=== PATIENT | female | born 1965 | race Two or more races ===

== ENCOUNTER 2019-06-05 02:56 | Emergency (ER) | payer MEDICAID ==
[~2019-06-05] VITALS: Ht 165.1 cm; Wt 79.8 kg
[2019-06-05] MEDS ORDERED: SODIUM CHLORIDE 0.9% 1,000 ML IVB ONE (03:20)
[2019-06-05 04:12] LABS: Basophils # (auto) 0 uL; Basophils % (auto) 0.4 % (0.0-2.0); Eosinophils # (auto) 0.2 uL; Eosinophils % (auto) 2.8 % (0.0-7.0); Hematocrit 40.4 % (36.0-46.0); Hemoglobin 13.3 g/dL (12.2-16.2); Lymphocytes # (auto) 1.7 uL; Mean Corpuscular Hemoglobin 29.1 pg (28.0-32.0); Mean Corpuscular Volume 88.3 fL (80.0-100.0); Monocytes # (auto) 0.8 uL; Neutrophils # (auto) 3.4 uL; Neutrophils % (auto) 55.8 % (37.0-80.0); Platelet Count (auto) 275 10^3/uL (140-450); Red Blood Cells 4.57 10^6/uL (4.0-5.20); Red Cell Distribution Width 15.5 % (11.8-14.3)
[2019-06-05 04:24] LABS: Urine Bacteria FEW /hpf (None Seen); Urine Blood 2+ /uL (Negative); Urine Specific Gravity 1.017 (1.001-1.035); Urine WBC 3 /hpf (0 - 5)
[2019-06-05 04:25] LABS: Albumin 3.7 g/dL (3.4-5.0); Calcium 8.7 mg/dL (8.5-10.1)
[2019-06-05 04:29] LABS: BUN/Creatinine Ratio 18.2; Bilirubin, Total 0.2 mg/dL (0.2-1.0); Total Protein 8.2 g/dL (6.4-8.2)
[2019-06-05 04:35] LABS: INR < 0.93 (0.9-1.15); Partial Thromboplastin Time 23.1 sec (23.64-32.05)
[2019-06-05 08:30] VITALS: BP 119/67
== END 2019-06-05 09:59 | disposition home or self-care (01) ==
LOC: ER 02:58
DX: N93.8 Other specified abnormal uterine and vaginal bleeding (principal)
CPT/HCPCS: 36415; 76856; 80053; 81001; 81025; 84702; 85025; 85610; 85730; 99284; J7030

== ENCOUNTER 2019-08-16 08:45 | Emergency (ER) | payer MEDICAID ==
[~2019-08-16] VITALS: Ht 152.4 cm; Wt 81.6 kg
[2019-08-16 11:37] VITALS: BP 148/67
[2019-08-16] MEDS ORDERED: KETOROLAC TROMETH 60MG/2ML VIAL IM ONE (13:00)
[2019-08-16] MEDS ORDERED: cefTRIAXone SOD 1,000 MG VL IM ONE (13:00)
== END 2019-08-16 14:22 | disposition home or self-care (01) ==
LOC: ER 08:45
DX: N61.0 Mastitis without abscess (principal)
CPT/HCPCS: 96372; 99283; J0696; J1885

== ENCOUNTER 2020-12-20 10:53 | Inpatient (IN) | payer MEDICAID ==
[~2020-12-20] VITALS: Ht 162.6 cm; Wt 83.6 kg
[2020-12-20 11:21] LABS: Basophils # (auto) 0 10 ^3/uL (0-0.2); Basophils % (auto) 0.7 % (0.0-2.0); Eosinophils # (auto) 0.1 10 ^3/uL (0-0.8); Hematocrit 38.5 % (36.0-46.0); Hemoglobin 13.1 g/dL (12.2-16.2); Lymphocytes # (auto) 1.6 10 ^3/uL (0.4-5.4); Lymphocytes % (auto) 23.8 % (10.0-50.0); Mean Corpuscular Hemoglobin 28.9 pg (28.0-32.0); Mean Corpuscular Hgb Conc. 33.9 g/dL (32.0-36.0); Mean Corpuscular Volume 85.1 fL (80.0-100.0); Monocytes # (auto) 0.5 10 ^3/uL (0-1.3); Monocytes % (auto) 7.5 % (0.0-12.0); Neutrophils # (auto) 4.4 10 ^3/uL (1.6-8.6); Red Blood Cells 4.52 10^6/uL (4.0-5.20); Red Cell Distribution Width 14.2 % (11.8-14.3); White Blood Cell 6.5 10^3/uL (4.4-10.8)
[2020-12-20] MEDS ORDERED: PANTOPRAZOLE 40 MG/10 ML VIAL INJ IV ONE (11:45)
[2020-12-20] MEDS ORDERED: SODIUM CHLORIDE 0.9% 1,000 ML IVB ONE (11:45)
[2020-12-20 12:14] LABS: Potassium 3.5 mmol/L (3.5-5.1)
[2020-12-20 12:27] LABS: Albumin 3.7 g/dL (3.4-5.0); BUN/Creatinine Ratio 20.3; Bilirubin, Total 0.3 mg/dL (0.2-1.0); Calcium 8.5 mg/dL (8.5-10.1); Total Protein 8.4 g/dL (6.4-8.2)
[2020-12-20 12:44] LABS: INR 0.99 (0.9-1.15); Partial Thromboplastin Time 25.8 sec (23.0-31.2)
[2020-12-20] MEDS ORDERED: MORPHINE SULFATE INJECTION 2 MG/ML SYRG IV PRN (14:15)
[2020-12-20] MEDS ORDERED: ACETAMINOPHEN 500 MG TAB PO PRN (14:15)
[2020-12-20] MEDS ORDERED: HYDROcodone-ACET 5/325MG TAB PO PRN (14:15)
[2020-12-20] MEDS ORDERED: DOCUSATE SOD 100 MG CAP PO PRN (14:15)
[2020-12-20] MEDS ORDERED: ONDANSETRON HCL 4 MG/2 ML VIAL IV PRN (14:15)
[2020-12-20] MEDS: SODIUM CHLORIDE 0.9% 1,000 ML IV SCH (15:14)
[2020-12-20] MEDS: CLINDAMYCIN 300MG IV 50 ML IV SCH (23:02)
[2020-12-21 03:51] VITALS: BP 118/61
[2020-12-21] MEDS: SODIUM CHLORIDE 0.9% 1,000 ML IV SCH ×2 (05:17→16:55)
[2020-12-21] MEDS: CLINDAMYCIN 300MG IV 50 ML IV SCH ×3 (05:17→21:18)
[2020-12-21 08:08] LABS: Basophils # (auto) 0 10 ^3/uL (0-0.2); Basophils % (auto) 0.7 % (0.0-2.0); Eosinophils # (auto) 0.1 10 ^3/uL (0-0.8); Eosinophils % (auto) 2.6 % (0.0-7.0); Hemoglobin 11.5 g/dL (12.2-16.2); Lymphocytes # (auto) 1.6 10 ^3/uL (0.4-5.4); Lymphocytes % (auto) 30.6 % (10.0-50.0); Mean Corpuscular Hemoglobin 28.9 pg (28.0-32.0); Mean Corpuscular Hgb Conc. 33.7 g/dL (32.0-36.0); Mean Corpuscular Volume 85.7 fL (80.0-100.0); Monocytes # (auto) 0.5 10 ^3/uL (0-1.3); Monocytes % (auto) 10.5 % (0.0-12.0); Neutrophils # (auto) 2.9 10 ^3/uL (1.6-8.6); Neutrophils % (auto) 55.6 % (37.0-80.0); Red Blood Cells 3.97 10^6/uL (4.0-5.20); Red Cell Distribution Width 14.2 % (11.8-14.3); White Blood Cell 5.2 10^3/uL (4.4-10.8)
[2020-12-21 08:25] LABS: Calcium 7.8 mg/dL (8.5-10.1); Potassium 3.8 mmol/L (3.5-5.1)
[2020-12-21 08:27] LABS: BUN/Creatinine Ratio 18.9
[2020-12-21] MEDS: FAMOTIDINE 20 MG TAB PO SCH (10:32)
[2020-12-21] MEDS ORDERED: GOLYTELY 4L KIT PO ONE (10:45)
[2020-12-21 16:00] VITALS: BP 135/85
[2020-12-21 21:55] VITALS: BP 130/79
[2020-12-22 01:20] VITALS: BP 138/79
[2020-12-22 02:00] VITALS: BP 131/74
[2020-12-22] MEDS: SODIUM CHLORIDE 0.9% 1,000 ML IV SCH (04:17)
[2020-12-22] MEDS ORDERED: GOLYTELY 4L KIT PO ONE (06:00)
[2020-12-22] MEDS: CLINDAMYCIN 300MG IV 50 ML IV SCH ×3 (06:22→22:26)
[2020-12-22 08:00] VITALS: BP 132/75
[2020-12-22] MEDS ORDERED: diphenhdrAMINE HCL 50 MG/1 ML VL ONE (08:03)
[2020-12-22] MEDS ORDERED: SODIUM CHLORIDE LOCK 10 ML ONE (08:03)
[2020-12-22] MEDS: FAMOTIDINE 20 MG TAB PO SCH (09:11)
[2020-12-22] MEDS: MIDAZOLAM HCL 5 MG/ML-1ML VIAL ONE ×3 (09:35→09:44)
[2020-12-22] MEDS: fentaNYL CITRATE 100 MCG/2 ML VL ONE ×3 (09:35→09:44)
[2020-12-22 10:44] LABS: Basophils # (auto) 0.1 10 ^3/uL (0-0.2); Basophils % (auto) 1.5 % (0.0-2.0); Eosinophils # (auto) 0.1 10 ^3/uL (0-0.8); Eosinophils % (auto) 3.5 % (0.0-7.0); Hematocrit 34.2 % (36.0-46.0); Hemoglobin 11.6 g/dL (12.2-16.2); Lymphocytes # (auto) 1.1 10 ^3/uL (0.4-5.4); Lymphocytes % (auto) 28.5 % (10.0-50.0); Mean Corpuscular Hemoglobin 28.9 pg (28.0-32.0); Mean Corpuscular Hgb Conc. 33.8 g/dL (32.0-36.0); Mean Corpuscular Volume 85.7 fL (80.0-100.0); Monocytes # (auto) 0.4 10 ^3/uL (0-1.3); Monocytes % (auto) 10.1 % (0.0-12.0); Neutrophils # (auto) 2.2 10 ^3/uL (1.6-8.6); Neutrophils % (auto) 56.4 % (37.0-80.0); Red Blood Cells 3.99 10^6/uL (4.0-5.20); Red Cell Distribution Width 14.3 % (11.8-14.3)
[2020-12-22 16:00] VITALS: BP 127/64
[2020-12-22] MEDS ORDERED: IOHEXOL 300 MG/ML 100ML BOTTLE IJ ONE (16:05)
[2020-12-22] MEDS: ASCORBIC ACID 500 MG TAB PO SCH (22:26)
[2020-12-23 00:10] VITALS: BP 134/74
[2020-12-23] MEDS: CLINDAMYCIN 300MG IV 50 ML IV SCH ×3 (05:58→22:06)
[2020-12-23 08:00] VITALS: BP 119/68
[2020-12-23 08:25] VITALS: BP 119/68
[2020-12-23] MEDS: FAMOTIDINE 20 MG TAB PO SCH (09:59)
[2020-12-23] MEDS: ASCORBIC ACID 500 MG TAB PO SCH ×2 (10:00→22:06)
[2020-12-23] MEDS ORDERED: levoFLOXacin 500MG 100 ML IV ONE (15:15)
[2020-12-23 16:00] VITALS: BP 129/79
[2020-12-24] VITALS: BP 144/84
[2020-12-24 05:28] LABS: Basophils # (auto) 0 10 ^3/uL (0-0.2); Basophils % (auto) 0.7 % (0.0-2.0); Eosinophils # (auto) 0.2 10 ^3/uL (0-0.8); Hematocrit 37.3 % (36.0-46.0); Hemoglobin 12.7 g/dL (12.2-16.2); Lymphocytes # (auto) 1.7 10 ^3/uL (0.4-5.4); Lymphocytes % (auto) 25.6 % (10.0-50.0); Mean Corpuscular Hgb Conc. 34.1 g/dL (32.0-36.0); Mean Corpuscular Volume 85.2 fL (80.0-100.0); Monocytes # (auto) 0.7 10 ^3/uL (0-1.3); Monocytes % (auto) 10.5 % (0.0-12.0); Neutrophils % (auto) 60.2 % (37.0-80.0); Nucleated Red Blood Cells % 0.1 %; Red Blood Cells 4.37 10^6/uL (4.0-5.20); Red Cell Distribution Width 14.3 % (11.8-14.3); White Blood Cell 6.7 10^3/uL (4.4-10.8)
[2020-12-24] MEDS: CLINDAMYCIN 300MG IV 50 ML IV SCH ×2 (05:46→14:00)
[2020-12-24 08:00] VITALS: BP 126/74
[2020-12-24] MEDS ORDERED: levoFLOXacin 500MG 100 ML IV SCH (10:00)
[2020-12-24] MEDS: FAMOTIDINE 20 MG TAB PO SCH (10:14)
[2020-12-24] MEDS: ASCORBIC ACID 500 MG TAB PO SCH (10:14)
[2020-12-24 16:00] VITALS: BP 142/84
== END 2020-12-24 15:30 | disposition home or self-care (01) | DRG 254 ==
LOC: ER 10:53 → TELE 10:54 → TELE-WESTW 12-21 03:29 → TELE-CENTR 12-21 04:00 → TELE-WESTW 12-22 01:19
PROVIDERS: ADMIT Nurse Practitioner Acute Care; ATTEND Internal Medicine
PROC: 0DBH8ZX Excision of Cecum, Via Natural or Artificial Opening Endoscopic, Diagnostic (ICD-10-PCS; principal; 2020-12-22 09:42)
DX: K63.5 Polyp of colon (principal); U07.1 COVID-19; K57.31 Diverticulosis of large intestine without perforation or abscess with bleeding; K61.1 Rectal abscess; K59.00 Constipation, unspecified; K42.9 Umbilical hernia without obstruction or gangrene; K62.1 Rectal polyp; K64.8 Other hemorrhoids; K76.0 Fatty (change of) liver, not elsewhere classified; L03.313 Cellulitis of chest wall; L02.213 Cutaneous abscess of chest wall; N81.4 Uterovaginal prolapse, unspecified; Z83.3 Family history of diabetes mellitus; Z82.49 Family history of ischemic heart disease and other diseases of the circulatory system; Z68.31 Body mass index [BMI] 31.0-31.9, adult; E66.01 Morbid (severe) obesity due to excess calories; R73.9 Hyperglycemia, unspecified
CPT/HCPCS: 36415; 45384; 71045; 71260; 74176; 76604; 80048; 80053; 81025; 83036; 83735; 84443; 85025; 85610; 85730; 87040; 87076; 87205; 87426; 96374; C9113; G0378; J1956; J2250; J3490